=== PATIENT | male | born 1975 | race Two or more races ===

== ENCOUNTER 2018-11-23 16:42 | Emergency (ER) | payer SELFPAY ==
[~2018-11-23] VITALS: Ht 167.6 cm; Wt 86.2 kg
[~2018-11-23 16:42] MED LIST: NKM
--- NOTE | 2018-11-23 16:44 | NUR ---
ED Nurse Note: patient brought in by ambulance due to abdominal pain 03/14 after playing soccer today, started about 45 minutes prior to arrival to ED. patient states he feels a mass above belly button. patient is alert awake x4 ambulatory. patient denies any trauma done to his abdomen.
[2018-11-23 16:55] VITALS: BP 138/84
[2018-11-23] MEDS ORDERED: COLACE100 MG ORAL (17:08)
[2018-11-23] MEDS ORDERED: IBUPROFEN600 MG ORAL (17:08)
--- NOTE | 2018-11-23 17:08 | Emergency Room Report ---
History of Present Illness General Chief Complaint: Abdominal Pain Source: EMS Present Illness HPI 43-year-old male patient presents the ER BIB ambulance complaining of abdominal pain the past few hours. Reports pain symptoms began earlier today. Reports pain is throbbing. Reports able to pass gas. Reports able to have bowel movements. Denies acute injury or trauma. Denies dysuria, hematuria. Denies fever, chest pain, shortness of breath. Denies vomiting or diarrhea. Denies other aggravating or relieving factors. Allergies: Coded Allergies: No Known Allergies (Unverified , 11/23/18) Patient History Past Medical History: see triage record Reviewed Nursing Documentation: PMH: Agreed; PSxH: Agreed Nursing Documentation-PMH Past Medical History: No Stated History Review of Systems All Other Systems: negative except mentioned in HPI Physical Exam Vital Signs Date Time Temp Pulse Resp B/P (MAP) Pulse Ox O2 Delivery O2 Flow Rate FiO2 11/23/18 16:39 98.4 86 15 140/90 98 Room Air Sp02 EP Interpretation: reviewed, normal General Appearance: well appearing, no apparent distress, alert, GCS 15, non- toxic Head: normocephalic, atraumatic Eyes: bilateral eye normal inspection, bilateral eye PERRL ENT: hearing grossly normal, normal pharynx, no angioedema, normal voice, uvula midline, moist mucus membranes Neck: full range of motion Respiratory: lungs clear, normal breath sounds, no rhonchi, no respiratory distress, no accessory muscle use, no wheezing, speaking full sentences Cardiovascular #1: regular rate, rhythm, no edema Gastrointestinal: non tender, soft, no mass, non-distended, no guarding, no rebound, hernia - Epigastric reducible hernia, no overlying erythema or ecchymosis, Musculoskeletal: back normal, digits/nails normal, gait/station normal, normal range of motion, non-tender Neurologic: alert, oriented x3, responsive, motor strength/tone normal, sensory intact Psychiatric: mood/affect normal Skin: no rash Medical Decision Making PA Attestation Dr. Kent is my supervising Physician whom patient management has been discussed with. Diagnostic Impression: Primary Impression: Ventral hernia without obstruction or gangrene ER Course Pt. presents to the ED c/o abdominal pain. Ddx considered but are not limited to ventral hernia, incarcerated hernia, strangulated hernia, SBO. Vital signs: are WNL, pt. is afebrile ER COURSE: Provided with pain medication in the ER. On physical exam, patient has a large epigastric reducible hernia superior to his umbilicus. Hernia reduced in the ER. No overlying erythema or edema. No clinical signs of obstruction, states he is able to pass gas, states he has bowel movements without difficulty, low suspicion for incarceration or strangulation. Okay for outpatient follow-up and treatment. Will provide patient with contact information for general surgeon. Advised to call primary care doctor tomorrow to schedule appointment. ER precautions given. Return to ER immediately for new or worsening of symptoms including but not limited to vomiting, unable to pass flatus, unable to pass bowel movements, fever. DISCHARGE: At this time pt is stable for d/c to home. Patient is resting comfortably, in no acute distress, nontoxic appearing, talking without difficulty. Patient to take medications as instructed Will provide with patient care instructions and any necessary prescriptions. Care plan and follow-up instructions provided. Patient instructed to follow-up with primary care provider in 3 - 5 days. Patient questions asked and answered. Patient reports understanding and agreement to treatment plan. ER precautions given. Patient instructed to return to ER immediately for any new or worsening of symptoms including but not limited to increasing SOB, persistent fever, chest pain, intractable vomiting. - Please note that this Emergency Department Report was dictated using [employer] asset manager technology software, occasionally this can lead to erroneous entry secondary to interpretation by the dictation equipment. Last Vital Signs Date Time Temp Pulse Resp B/P (MAP) Pulse Ox O2 Delivery O2 Flow Rate FiO2 11/23/18 16:39 98.4 86 15 140/90 98 Room Air Status: improved Disposition: HOME, SELF-CARE Condition: Stable Scripts Docusate Sodium* (COLACE*) 100 Mg Capsule 100 MG ORAL THREE TIMES A DAY, #30 CAP Prov: Laz Kitchen P.A. 11/23/18 Ibuprofen* (MOTRIN*) 600 Mg Tablet 600 MG ORAL Q8H PRN for For Pain, #30 TAB 0 Refills Prov: Laz Kitchen P.A. 11/23/18 Patient Instructions: Abdominal Pain, Adult, Hernia, Adult, [id number], Ventral Hernia Additional Instructions: Followup with primary care provider in 3 -5 days. Discussed referral to general surgery for outpatient treatment. Take Motrin as needed for pain symptoms. Take medications as directed. Apply ice to affected area. Patient questions asked and answered. ER precautions given, patient instructed to return to ER immediately for any new or worsening of symptoms. Laz Kitchen Nov 23, 2018 17:08
[2018-11-23] MEDS ORDERED: Ketorolac 30mg Inj IM ONE (17:15)
[2018-11-23 17:25] VITALS: BP 138/84
--- NOTE | 2018-11-23 17:25 | NUR ---
ER DISCHARGE NOTE: Patient is cleared to be discharged per ERMD, pt is aox4, on room air, with stable vital signs. pt was given dc and prescription instructions, pt was able to verbalize understanding, pt id band removed without complications. pt is able to ambulate with steady gait. pt took all belongings.
== END 2018-11-23 17:25 | disposition home or self-care (01) ==
LOC: EDBD 16:42 → EMR 17:09
DX: K43.9 Ventral hernia without obstruction or gangrene (principal)
CPT/HCPCS: 96372; 99283; J1885